=== PATIENT | male | born 1970 | race African-American/Black ===

== ENCOUNTER 2021-12-01 08:54 | Emergency (ER) | payer BC, SELFPAY ==
[2021-12-01] MEDS ORDERED: Acetaminophen 500 MG TAB ONE (09:35)
[2021-12-01] MEDS ORDERED: Ketorolac Tromethamine 30 MG/ML VIAL ONE (09:35)
[2021-12-01 09:57] LABS: Bilirubin Neg (Negative); Blood, Urine Negative (Negative); Clarity Clear (Clear); Glucose, Urine (Dipstick) Normal (Negative); Ketone, Urine Negative (Negative); Leukocyte 25 (Negative); Nitrite Negative (Negative); Protein, Urine (Dipstick) 15 mg/dl (Neg-Trace); Urobilinogen Normal mg/dL (Less than 2)
[2021-12-01 10:14] LABS: Bacteria/HPF 1+ HPF (None Seen); RBC/HPF None Seen HPF (0-3); Squamous Epithelial 0-3 HPF (0-3)
[2021-12-02 12:00] LABS: Chlam.trachomatis by PCR,Urine Not Detected (NotDetected)
== END 2021-12-01 15:18 | disposition home or self-care (01) ==
LOC: CSHERS 08:54
DX: N45.3 Epididymo-orchitis (principal); F17.210 Nicotine dependence, cigarettes, uncomplicated
CPT/HCPCS: 76870; 81003; 81015; 87086; 87491; 87591; 93976; 96372; J1885